=== PATIENT | male | born 2000 | race Two or more races ===

== ENCOUNTER 2023-12-07 19:50 | Emergency (ER) | payer MEDICAID ==
[~2023-12-07] VITALS: Ht 154.9 cm; Wt 64.1 kg
[2023-12-07 19:57] VITALS: BP 148/91; PULSE 106; RESP 20; O2SAT 100
== END 2023-12-07 23:41 | disposition left against medical advice (07) ==
LOC: ER 19:50
DX: M25.561 Pain in right knee (principal); M79.89 Other specified soft tissue disorders; Z53.21 Procedure and treatment not carried out due to patient leaving prior to being seen by health care provider